=== PATIENT | female | born 1970 | race Caucasian/White ===

== ENCOUNTER 2021-03-29 20:20 | Inpatient (IN) | payer OTHER ==
[~2021-03-29] VITALS: Ht 154.9 cm; Wt 61.7 kg
[2021-03-29 21:54] LABS: BASOPHIL 0.5 % (0-2); EOSINOPHIL 0.1 % (0-5); HCT 50.8 % (37.0-47.0); LYMPHOCYTE 19.2 % (15-48); MCH 30.7 pg (25.0-31.0); MCHC 33.5 g/dL (32.0-36.0); MCV 91.7 fL (78.0-100.0); MONOCYTE 7.8 % (0-12); NEUTROPHIL 72.1 % (41-80); NRBC 0; PLT 310 K/uL (150-400); RBC 5.54 M/uL (4.20-5.40); RDW 12.1 % (11.5-14.0); WBC 9.8 K/uL (4.0-10.5)
[2021-03-29 22:14] LABS: ALBUMIN 4.4 g/dL (3.4-5.0); BILIRUBIN - TOTAL 0.6 mg/dL (0.2-1.0); BUN/CREAT RATIO (CALC) 18.5 RATIO; CREATININE 0.81 mg/dL (0.51-0.95); GLOBULIN (CALCULATION) 4.1 g/dL; MAGNESIUM 2.8 mg/dL (1.8-2.4); PHOSPHORUS 6.4 mg/dL (2.6-4.7); TOTAL PROTEIN 8.5 g/dL (6.4-8.2)
[2021-03-29 22:37] LABS: BILIRUBIN NEGATIVE (NEGATIVE); BLOOD NEGATIVE Ery/uL (NEGATIVE); CLARITY CLEAR (CLEAR); COLOR YELLOW (YELLOW); GLUCOSE (U) 3+ mg/dL (NORMAL); LEUKOCYTES NEGATIVE Leu/uL (NEGATIVE); NITRITE NEGATIVE (NEGATIVE); PROTEIN NEGATIVE (NEGATIVE); UROBILINOGEN 0.2 mg/dL (0.2-1.0); pH 5.5 (5.0-9.0)
[2021-03-29 23:11] LABS: CORONAVIRUS 2019 SARS-COV-2 NEGATIVE (NEGATIVE); INFLUENZA A NAA NEGATIVE (NEGATIVE)
[2021-03-30 01:04] LABS: BUN/CREAT RATIO (CALC) 20.8 RATIO; CREATININE 0.72 mg/dL (0.51-0.95); POTASSIUM 3.9 mmol/L (3.5-5.1)
[2021-03-30 02:39] LABS: CREATININE 0.65 mg/dL (0.51-0.95); POTASSIUM 3.8 mmol/L (3.5-5.1)
[2021-03-30 06:17] LABS: HCT 43.4 % (37.0-47.0); HGB 14.6 g/dl (12.5-16.0); MCH 30.5 pg (25.0-31.0); MCHC 33.6 g/dL (32.0-36.0); MCV 90.8 fL (78.0-100.0); MPV 10.8 fL (6.0-9.5); RBC 4.78 M/uL (4.20-5.40); RDW 12.1 % (11.5-14.0); WBC 10.6 K/uL (4.0-10.5)
[2021-03-30 06:48] LABS: ALBUMIN 3.3 g/dL (3.4-5.0); BILIRUBIN - TOTAL 0.4 mg/dL (0.2-1.0); BUN/CREAT RATIO (CALC) 19.7 RATIO; CREATININE 0.61 mg/dL (0.51-0.95); PHOSPHORUS 2.8 mg/dL (2.6-4.7); POTASSIUM 3.9 mmol/L (3.5-5.1)
[2021-03-30 06:53] LABS: GLOBULIN (CALCULATION) 3.1 g/dL; MAGNESIUM 2.2 mg/dL (1.8-2.4); TOTAL PROTEIN 6.4 g/dL (6.4-8.2)
[2021-03-30 10:11] LABS: BUN/CREAT RATIO (CALC) 22.6 RATIO; CREATININE 0.62 mg/dL (0.51-0.95); POTASSIUM 3.7 mmol/L (3.5-5.1)
[2021-03-31 07:13] LABS: BASOPHIL 0.5 % (0-2); EOSINOPHIL 2.3 % (0-5); HCT 34.9 % (37.0-47.0); HGB 11.7 g/dl (12.5-16.0); LYMPHOCYTE 49.2 % (15-48); MCHC 33.5 g/dL (32.0-36.0); MCV 92.3 fL (78.0-100.0); MONOCYTE 6.5 % (0-12); MPV 10.7 fL (6.0-9.5); NEUTROPHIL 41.3 % (41-80); NRBC 0; PLT 151 K/uL (150-400); RBC 3.78 M/uL (4.20-5.40); RDW 12.6 % (11.5-14.0); WBC 5.7 K/uL (4.0-10.5)
[2021-03-31 07:33] LABS: BUN/CREAT RATIO (CALC) 17.5 RATIO; CREATININE 0.57 mg/dL (0.51-0.95); MAGNESIUM 1.9 mg/dL (1.8-2.4); POTASSIUM 3.1 mmol/L (3.5-5.1)
[2021-03-31] MEDS ORDERED: NOVOLOG FL100 UNIT/1 SC (09:46)
[2021-03-31] MEDS ORDERED: LEVEMIR FL100 UNIT/1 SC (09:46)
[2021-03-31] MEDS ORDERED: DIFLUCAN150 MG PO (09:59)
[2021-03-31] MEDS ORDERED: POTASSIUM CHLO20 ME1 PO (10:06)
== END 2021-03-31 11:51 | disposition home or self-care (01) | DRG 638 ==
LOC: FER 20:20 → FTCU 23:48 → FICU 23:48 → FER 23:48 → FMS 03-30 13:32
PROVIDERS: Emergency Medicine Emergency Medical Services; Internal Medicine; Nurse Practitioner; Nurse Practitioner Family; ADMIT Family Medicine
DX: E10.10 Type 1 diabetes mellitus with ketoacidosis without coma (principal); B37.0 Candidal stomatitis; E87.6 Hypokalemia; E78.5 Hyperlipidemia, unspecified; E87.5 Hyperkalemia; Z20.822 Contact with and (suspected) exposure to COVID-19; Z88.0 Allergy status to penicillin; Z86.16 Personal history of COVID-19; Z80.3 Family history of malignant neoplasm of breast; Z82.49 Family history of ischemic heart disease and other diseases of the circulatory system
CPT/HCPCS: 36415; 36600; 71045; 80048; 80053; 80061; 81003; 82009; 82803; 82962; 83036; 83605; 83690; 83735; 84100; 84681; 85025; 93005; 94010; C9113; J1650; J1815; J3480; J7030; U0002